=== PATIENT | male | born 1990 | race American Indian/Alaskan Native ===

== ENCOUNTER 2020-01-29 16:12 | Emergency (ER) | payer MEDICAID ==
--- NOTE | 2020-01-29 16:48 | Emergency Department Report ---
ED Psych HPI - General Chief Complaint: Psych Stated Complaint: AMANDA EVGEORGIE Time Seen by Provider: 01/29/20 16:38 Source: patient, EMS Mode of arrival: Ambulatory - History of Present Illness Initial Comments: Patient is 29 years old male with history of schizophrenia and impulsive d isorder. Patient brought to the emergency room via EMS from home after his mother called crisis center and stated that he has been very agitated and hyperverbal and expressing thoughts of hurting his family according to his mother report. Patient brought to the emergency room with a [id number] signed by crisis center indicating that patient is agitated, pacing delusions and report a physical harm to family. She also indicated that he has been hypersexual recently. Upon arrival to the ER patient is calm and answering question appropriately he denied any homicidal or suicidal ideation. He also denied any visual or auditory hallucination. MD Complaint: altered mental status -: days(s) Associated Psychiatric Symptoms: homicidal ideation, racing thoughts History of same: Yes Quality: constant Associated Symptoms: denies other symptoms Treatments Prior to Arrival: placed on mental he - Related Data Allergies Allergy/AdvReac Type Severity Reaction Status Date / Time No Known Allergies Allergy Verified 01/30/20 11:30 ED Review of Systems ROS: Stated complaint: AMANDA EVAL Other details as noted in HPI Comment: All other systems reviewed and negative Constitutional: denies: chills, fever Respiratory: denies: cough, shortness of breath, SOB with exertion, SOB at rest, wheezing Cardiovascular: denies: chest pain, palpitations Gastrointestinal: denies: abdominal pain, nausea, vomiting, diarrhea, constipa tion, hematemesis, melena, hematochezia Musculoskeletal: denies: back pain Neurological: denies: headache, weakness, numbness, paresthesias, confusion, abnormal gait Psychiatric: homicidal thoughts ED Past Medical Hx - Past Medical History Previous Medical History?: Yes Hx Psychiatric Treatment: Yes (Schizophrenia;impulsive behavior) Additional medical history: Sleep apnea - Surgical History Past Surgical History?: No - Social History Smoking Status: Current Every Day Smoker Substance Use Type: None ED Physical Exam - General Limitations: Other General appearance: alert, in no apparent distress, anxious - Head Head exam: Present: atraumatic, normocephalic, normal inspection - Eye Eye exam: Present: normal appearance, PERRL - ENT ENT exam: Present: normal exam, normal orophraynx, mucous membranes moist - Neck Neck exam: Present: normal inspection, full ROM. Absent: tenderness, meningismus, lymphadenopathy, thyromegaly - Respiratory Respiratory exam: Present: normal lung sounds bilaterally - Cardiovascular Cardiovascular Exam: Present: regular rate, normal rhythm, normal heart sounds - GI/Abdominal GI/Abdominal exam: Present: soft, normal bowel sounds. Absent: distended, tenderness, guarding, rebound, rigid, organomegaly, mass, bruit, pulsatile mass, hernia - Extremities Exam Extremities exam: Present: normal inspection, full ROM, normal capillary refill. Absent: tenderness, pedal edema, joint swelling, calf tenderness - Back Exam Back exam: Present: normal inspection, full ROM. Absent: CVA tenderness (R), CVA tenderness (L), muscle spasm, paraspinal tenderness, vertebral tenderness - Neurological Exam Neurological exam: Present: alert, oriented X3, CN II-XII intact, normal gait, reflexes normal. Absent: motor sensory deficit - Psychiatric Psychiatric exam: Present: normal mood - Skin Skin exam: Present: warm, intact, normal color. Absent: cyanosis ED Course Vital Signs 01/29/20 01/29/20 01/29/20 16:19 16:33 20:13 Temperature 97.8 F 98.4 F Pulse Rate 107 H 100 H Respiratory 16 18 20 Rate Blood Pressure 131/89 Blood Pressure 103/47 [Left] O2 Sat by Pulse 96 Oximetry 01/30/20 01/30/20 01/30/20 02:15 08:00 14:37 Temperature 98.1 F 97.8 F 97.6 F Pulse Rate 87 114 H 114 H Respiratory 18 18 18 Rate Blood Pressure Blood Pressure 144/76 140/98 137/76 [Left] O2 Sat by Pulse 96 95 95 Oximetry 01/30/20 01/31/20 01/31/20 20:09 01:26 08:40 Temperature 97.9 F 98.6 F 97.9 F Pulse Rate 85 96 H 86 Respiratory 18 18 18 Rate Blood Pressure Blood Pressure 156/76 122/53 154/91 [Left] O2 Sat by Pulse 100 98 96 Oximetry ED Medical Decision Making - Lab Data Result diagrams: 01/29/20 16:40 01/29/20 16:40 Critical care attestation.: If time is entered above; I have spent that time in minutes in the direct care of this critically ill patient, excluding procedure time. ED Disposition Clinical Impression: Bipolar disorder Disposition: [id number]/TX-65 PSY HOSP/PSY UNIT Is pt being admited?: No Condition: Stable Referrals: PRIMARY CARE, [Primary Care Provider] - 3-5 Days
[2020-01-29 16:55] LABS: Basophils # (Auto) 0.1 K/mm3 (0.0-0.1); Basophils % (Auto) 0.9 % (0.0-1.8); Eosinophils # (Auto) 0.4 K/mm3 (0.0-0.4); Eosinophils % (Auto) 3.2 % (0.0-4.3); Hematocrit 47.3 % (35.5-45.6); Lymphocytes # (Auto) 3.3 K/mm3 (1.2-5.4); Lymphocytes % (Auto) 29.5 % (13.4-35.0); Mean Corpuscular HGB Conc 34 % (32-34); Mean Corpuscular Volume 85 fl (84-94); Monocytes # (Auto) 0.9 K/mm3 (0.0-0.8); Red Blood Count 5.59 M/mm3 (3.65-5.03)
[2020-01-29 16:57] LABS: Platelet Count 218 K/mm3 (140-440)
[2020-01-29 17:15] LABS: BUN/Creatinine Ratio 7; Blood Urea Nitrogen 7 mg/dL (9-20); Calcium 9.3 mg/dL (8.4-10.2); Hemolysis Index 16
[2020-01-30 09:54] LABS: Bilirubin,Urine NEG (Negative); Blood,Urine NEG (Negative); Color,Urine Yellow (Yellow); Mucus,Urine 2+ /HPF; Protein,Urine <15 mg/dL mg/dL (Negative)
[2020-01-30 10:17] LABS: Amphetamine Screen,Urine Negative; Benzodiazepines Screen,Urine Negative; Cannabinoid Screen,Urine Negative; Cocaine Screen,Urine Negative; Methadone Screen,Urine Negative; Opiate Screen,Urine Negative
--- NOTE | 2020-01-30 11:07 | Consultation ---
History of Present Illness - Reason for Consult Consult date: 01/30/20 Reason for consult: aggression, delusions - History of Present Psychiatric Illness Jo Ann Echevarria was brought to the ER by EMS for delusions, aggression and making threats to hurt his family. During my interview with the patient, he is lying down asleep. He easily arouses. He is oriented x 3. He is not forthcoming. He comes across as paranoid. He states to me that he was brought to the hospital "because I needed to get away from my mom for while." He then says "my mom was fussing." When asking the patient about the aggressive behavior and threats toward his family he says "yea, that's what they told you?" He then raises up and stares at me. The patient says "I know what they are up to." He denies suicidal thoughts, stating "who said that. I never told anybody I was suicidal." The patient also denies hallucinations. He asks, "who told you I was having hallucinations." He then says, "I guess them too." He denies any illicit drug use, alcohol or nicotine. He also denies any suicidal attempts. The patient says he has a history of "schizophrenia." He says he takes "abilify." PAST PSYCHIATRIC HISTORY Diagnoses: "schizophrenia" Suicide attempts or Self-harm behavior: Denies Prior psychiatric hospitalizations: Denies Substance Abuse history: Denies Previous psychiatric medications tried: Abilify Outpatient treatment: Yes PAST MEDICAL HISTORY: Denies Family Psychiatric History: None reported or documented SOCIAL HISTORY Marital Status: Single Living Arrangements: with mom Employment Status: Unemployed Access to guns/weapons: Denies Education: high school grad History of Abuse: none reported Legal History: none reported REVIEW OF SYSTEMS Constitutional: Negative for weight loss ENT: Negative for stridor Respiratory: Negative for cough or hemoptysis All other systems reviewed and are negative MENTAL STATUS EXAMINATION General Appearance: Dressed appropriately Behavior: not forthcoming, cooperative, irritable Mood: depressed Affect and affective range: Congruent with stated mood Thought Process: goal directed Speech: normal tone and pace Thought content Suicidal Ideation: Denies Homicidal Ideation: Yes, but doesn't answer directly Hallucinations: Denies Delusions: Paranoid Insight and Judgment: Limited Memory/Cognition: Limited Attention: Normal Orientation: Alert, oriented Assessment Bipolar Disorder PLAN Start Abilify 5mg po daily Start Depakote DR 125mg po BID Start Trazodone 50mg po qhs Start Geodon 20mg IM q6h prn agitation Sitter: Defer to primary Medical: Per primary Disposition: Recommend acute inpatient psychiatric treatment Will continue to follow. Thank you for this consult. Medications and Allergies Allergies Allergy/AdvReac Type Severity Reaction Status Date / Time No Known Allergies Allergy Unverified 01/29/20 16:23 Mental Status Exam - Vital signs Last Vital Signs Temp 97.8 F 01/30/20 08:00 Pulse 114 H 01/30/20 08:00 Resp 18 01/30/20 08:00 BP 140/98 01/30/20 08:00 Pulse Ox 95 01/30/20 08:00 Results Result Diagrams: 01/29/20 16:40 01/29/20 16:40 Abnormal lab results 01/29/20 01/29/20 01/29/20 Range/Units 16:40 16:40 16:40 WBC (4.5-11.0) K/mm3 RBC (3.65-5.03) M/mm3 Hgb (11.8-15.2) gm/dl Hct (35.5-45.6) % [place] % (Auto) (0.0-7.3) % [place] # (0.0-0.8) K/mm3 BUN 7 L (9-20) mg/dL Glucose 105 H (75-100) mg/dL Urine WBC (Auto) (0.0-6.0) /HPF Salicylates < 0.3 L (2.8-20.0) mg/dL Acetaminophen 5.0 L (10.0-30.0) ug/mL 01/29/20 01/30/20 Range/Units 16:40 09:28 WBC 11.2 H (4.5-11.0) K/mm3 RBC 5.59 H (3.65-5.03) M/mm3 Hgb 16.0 H (11.8-15.2) gm/dl Hct 47.3 H (35.5-45.6) % [place] % (Auto) 8.0 H (0.0-7.3) % [place] # 0.9 H (0.0-0.8) K/mm3 BUN (9-20) mg/dL Glucose (75-100) mg/dL Urine WBC (Auto) 8.0 H (0.0-6.0) /HPF Salicylates (2.8-20.0) mg/dL Acetaminophen (10.0-30.0) ug/mL All other labs normal.
[2020-01-30] MEDS ORDERED: ZIPRASIDONE MESYLATE 20 MG VIAL IM PRN (11:24)
[2020-01-30] MEDS: DIVALPROEX DR 125 MG TAB PO SCH ×2 (11:52→21:48)
[2020-01-30] MEDS: ARIPiprazole 5 MG TAB PO SCH (12:18)
[2020-01-30] MEDS ORDERED: traZODone 50 MG TAB PO SCH (22:00)
[2020-01-31 08:41] VITALS: BP 154/91
[2020-01-31] MEDS ORDERED: DIVALPROEX DR 500 MG TAB ONE (10:37)
[2020-01-31] MEDS: DIVALPROEX DR 125 MG TAB PO SCH (10:39)
[2020-01-31] MEDS: ARIPiprazole 5 MG TAB PO SCH (10:39)
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
[2020-01-31] MEDS ORDERED: DIVALPROEX DR 250 MG TAB PO SCH (22:00)
[2020-02-01] MEDS ORDERED: ARIPiprazole 10 MG TAB PO SCH (10:00)
== END 2020-01-31 13:57 ==
LOC: EEVIPCON 16:12 → ED 16:12
DX: F25.9 Schizoaffective disorder, unspecified (principal); F17.200 Nicotine dependence, unspecified, uncomplicated
CPT/HCPCS: 36415; 80048; 80307; 80320; 81001; 85025; G0480

== ENCOUNTER 2021-11-15 21:57 | Emergency (ER) | payer MEDICAID ==
[2021-11-15 23:45] LABS: Basophils # (Auto) 0.1 K/mm3 (0.0-0.1); Basophils % (Auto) 0.7 % (0.0-1.8); Eosinophils # (Auto) 0.5 K/mm3 (0.0-0.4); Eosinophils % (Auto) 4.3 % (0.0-4.3); Hematocrit 48.8 % (35.5-45.6); Hemoglobin 15.6 gm/dl (11.8-15.2); Lymphocytes # (Auto) 3.9 K/mm3 (1.2-5.4); Lymphocytes % (Auto) 31.8 % (13.4-35.0); Mean Corpuscular HGB Conc 32 % (32-34); Mean Corpuscular Volume 87 fl (84-94); Monocytes # (Auto) 0.9 K/mm3 (0.0-0.8); Monocytes % (Auto) 7.3 % (0.0-7.3); Red Blood Count 5.61 M/mm3 (3.65-5.03); Red Cell Distribution Width 14.2 % (13.2-15.2)
[2021-11-15 23:57] LABS: BUN/Creatinine Ratio 9; Blood Urea Nitrogen 10 mg/dL (9-20); Calcium 9.4 mg/dL (8.4-10.2); Hemolysis Index 9
[2021-11-15 23:58] LABS: Platelet Count 208 K/mm3 (140-440)
--- NOTE | 2021-11-16 03:56 | Emergency Department Report ---
ED Psych HPI - General Chief Complaint: Psych Stated Complaint: PSYCH EVAL Time Seen by Provider: 11/15/21 23:13 Source: patient Mode of arrival: Stretcher - History of Present Illness Initial Comments: Patient is a 31-year-old male presenting to ED with complaint of stress and r equesting mental health exam. Denies SI or HI. - Related Data Allergies Allergy/AdvReac Type Severity Reaction Status Date / Time No Known Allergies Allergy Verified 01/30/20 11:30 ED Review of Systems ROS: Stated complaint: PSYCH EVAL Other details as noted in HPI Comment: All other systems reviewed and negative Constitutional: denies: chills, fever Respiratory: denies: cough, shortness of breath, wheezing Cardiovascular: denies: chest pain, palpitations Gastrointestinal: denies: abdominal pain, nausea, diarrhea Genitourinary: denies: urgency, dysuria Skin: denies: rash, lesions Neurological: denies: headache, weakness, paresthesias Psychiatric: anxiety. denies: auditory hallucinations, visual hallucinations, homicidal thoughts Hematological/Lymphatic: denies: easy bleeding, easy bruising ED Past Medical Hx - Past Medical History Previous Medical History?: Yes Hx Psychiatric Treatment: Yes (Schizophrenia;impulsive behavior) Additional medical history: Sleep apnea - Surgical History Past Surgical History?: No - Social History Smoking Status: Never Smoker Substance Use Type: None ED Physical Exam - General Limitations: No Limitations General appearance: alert, in no apparent distress - Head Head exam: Present: atraumatic, normocephalic - Neck Neck exam: Present: normal inspection - Respiratory Respiratory exam: Present: normal lung sounds bilaterally. Absent: respiratory distress - Cardiovascular Cardiovascular Exam: Present: regular rate, normal rhythm, normal heart sounds - GI/Abdominal GI/Abdominal exam: Present: soft. Absent: distended, tenderness - Rectal Rectal exam: Present: deferred - Neurological Exam Neurological exam: Present: alert, oriented X3, CN II-XII intact - Psychiatric Psychiatric exam: Present: normal affect, normal mood. Absent: agitated, homicidal ideation, suicidal ideation - Skin Skin exam: Present: warm, dry, intact, normal color ED Course Vital Signs 11/15/21 21:57 Temperature 98 F Pulse Rate 109 H Respiratory 18 Rate Blood Pressure 150/90 O2 Sat by Pulse 99 Oximetry ED Medical Decision Making - Lab Data Result diagrams: 11/15/21 23:25 11/15/21 23:25 - Medical Decision Making Labs grossly unremarkable. Patient awaiting mental health exam. Critical care attestation.: If time is entered above; I have spent that time in minutes in the direct care of this critically ill patient, excluding procedure time. ED Disposition Condition: Stable
[2021-11-16 07:37] LABS: Amphetamine Screen,Urine Negative; Benzodiazepines Screen,Urine Negative; Cannabinoid Screen,Urine Negative; Cocaine Screen,Urine Negative; Methadone Screen,Urine Negative; Opiate Screen,Urine Negative
[2021-11-16 08:22] LABS: WBC,Urine < 1.0 /HPF (0.0-6.0)
[2021-11-16 08:53] LABS: Bilirubin,Urine Negative (Negative); Color,Urine Straw (Yellow)
[2021-11-16 08:54] LABS: Blood,Urine Negative (Negative); PH,Urine 7.5 (5.0-7.0); Urobilinogen,Urine < 2.0 mg/dL (<2.0)
--- NOTE | 2021-11-16 10:34 | Consultation ---
History of Present Illness - Reason for Consult Consult date: 11/16/21 Reason for consult: off meds - History of Present Psychiatric Illness HPI: Patient is a 31-year-old male presenting to ED with complaint of stress and requesting mental health exam. Denies SI or HI. The patient was seen today. He is sleeping but easily arouses. The patient is calm and cooperative. The patient says he has a history of schizophrenia and had his haldol injection 2 days ago. He says he came to the hospital because he felt mentally stressed. The patient says sometimes his name stresses him out. When I asked what was it about his name, he says, "when I look it up. Just the meaning carries a lot of weight." The patient denies SI/HI or any fear of endangerment. He says "I really just wanted an evaluation." He says he lives with his mom and she thought he should get checked out. The patient denies any illicit drug use or alcohol. He says he smokes tobacco. The patient denies hallucinations of any kind. The patient later comes in the soto, and tells me that he feels he could go home. The patient doesn't appear to be a threat to himself or others. He can be man aged on an outpatient basis and discuss with his psychiatrist about adjusting his medications. PAST PSYCHIATRIC HISTORY: Diagnoses: Schizophrenia Suicide attempts or Self-harm behavior: Denies Prior psychiatric hospitalizations: Yes Substance Abuse history: Denies Previous psychiatric medications tried: could not recall Outpatient treatment: Yes PAST MEDICAL HISTORY: None reported Family Psychiatric History: None reported or documented SOCIAL HISTORY Marital Status: Single Living Arrangements: lives with mom Employment Status: Disabled Access to guns/weapons: Denies Education: History of Abuse:Denies Legal History: Denies REVIEW OF SYSTEMS Constitutional: Negative for weight loss ENT: Negative for stridor Respiratory: Negative for cough or hemoptysis All other systems reviewed and are negative MENTAL STATUS EXAMINATION General Appearance and Behavior: Age appropriate, wearing appropriate clothes, cooperative, calm, good eye contact Cooperation: cooperative Psychomotor Behavior: Psychomotor normal Mood: okay Affect and affective range: congruent with stated affect Thought Process: Goal directed Thought Content: hallucinations Speech: Normal volume, Regular rate and rhythm Suicidal Ideation: Denies Homicidal Ideation: Denies Hallucination: Denies Delusions: Denies Impulse Control: Limited Insight and Judgment: Limited Memory: Intact Attention:attentive Orientation: Alert and oriented Diagnoses: Schizophrenia Treatment Plan Continue previously prescribed meds Follow up with outpatient psychiatrist in 7 to 14 days upon discharge Medical: Per primary Sitter: Defer to primary Disposition: Do not recommend acute psychiatric inpatient treatment. The patient understands that if SI/HI or any fear of endangerment he is to seek immediate assistance. Will sign off. Thanks Case staffed with Dr. Martinez Medications and Allergies Allergies Allergy/AdvReac Type Severity Reaction Status Date / Time No Known Allergies Allergy Verified 01/30/20 11:30 Mental Status Exam - Vital signs Last Vital Signs Temp 98 F 11/15/21 21:57 Pulse 109 H 11/15/21 21:57 Resp 18 11/15/21 21:57 BP 150/90 11/15/21 21:57 Pulse Ox 97 11/16/21 09:49 Results Result Diagrams: 11/15/21 23:25 11/15/21 23:25 Abnormal lab results 11/15/21 11/15/21 11/15/21 Range/Units 23:25 23:25 23:25 WBC 12.2 H (4.5-11.0) K/mm3 RBC 5.61 H (3.65-5.03) M/mm3 Hgb 15.6 H (11.8-15.2) gm/dl Hct 48.8 H (35.5-45.6) % [place] # (Auto) 0.9 H (0.0-0.8) K/mm3 [place] # (Auto) 0.5 H (0.0-0.4) K/mm3 Carbon Dioxide 32 H (22-30) mmol/L Glucose 108 H (75-100) mg/dL Urine pH (5.0-7.0) Salicylates < 0.3 L (2.8-20.0) mg/dL Acetaminophen (10.0-30.0) ug/mL 11/15/21 11/16/21 Range/Units 23:25 Unknown WBC (4.5-11.0) K/mm3 RBC (3.65-5.03) M/mm3 Hgb (11.8-15.2) gm/dl Hct (35.5-45.6) % [place] # (Auto) (0.0-0.8) K/mm3 Eos # (Auto) (0.0-0.4) K/mm3 Carbon Dioxide (22-30) mmol/L Glucose (75-100) mg/dL Urine pH 7.5 H (5.0-7.0) Salicylates (2.8-20.0) mg/dL Acetaminophen 5.0 L (10.0-30.0) ug/mL All other labs normal.
[2021-11-16 11:18] VITALS: BP 129/69
== END 2021-11-16 12:53 | disposition home or self-care (01) ==
LOC: ED 21:57
DX: F43.9 Reaction to severe stress, unspecified (principal); F20.9 Schizophrenia, unspecified; Z20.822 Contact with and (suspected) exposure to COVID-19; Z79.899 Other long term (current) drug therapy
CPT/HCPCS: 36415; 80048; 80307; 81001; 85025; 99284; U0003; 80320; G0480